=== PATIENT | male | born 1995 | race Caucasian/White ===

== ENCOUNTER 2024-05-07 07:42 | Outpatient (CLI) | payer SELFPAY ==
[2024-05-07 11:29] LABS: HIV 1/2 Ab P24 Ag Result Negative (Negative); Hepatitis C Virus Antibody Negative (Negative)
[2024-05-07 11:50] LABS: Hepatitis B Surface Antigen Negative (Negative)
== END 2024-05-07 07:43 | disposition home or self-care (01) ==
LOC: ANHLAB 07:48
PROVIDERS: PCP Nurse Practitioner Family; Visit Provider Nurse Practitioner Family
DX: T14.8XXA Other injury of unspecified body region, initial encounter (principal); W46.0XXA Contact with hypodermic needle, initial encounter
CPT/HCPCS: 36415; 86703; 86803; 87340; G0432

== ENCOUNTER 2025-02-26 09:10 | Emergency (ER) | payer OTHER, SELFPAY ==
[2025-02-26 09:19] VITALS: BP 136/84; PULSE 103; RESP 18; TEMP 37.1; O2SAT 97
--- NOTE | 2025-02-26 10:01 | ED_ITS ---
HPI - URI/Sore Throat General Chief Complaint: Upper Respiratory Infection Stated Complaint: fever/chills Source: patient and family ( and daughter) Mode of arrival: ambulatory Limitations: no limitations History of Present Illness HPI Narrative: 29-year-old male presents to [facility] with complaints of cold sweats, decreased appetite and congestion since yesterday. Patient reports that he had body aches and chills yesterday but they have since resolved. Patient tried taking ibuprofen with follow-up with. Patient denies sick contacts For recent travel. Patient denies nausea, vomiting, diarrhea, shortness of breath, wheezing, ear pain or sore throat. MD elicited complaint: nasal congestion and other ( sweats, decreased appetite) Onset (ago): day(s) (1) Exacerbating factors: nothing Relieving factors: nothing Treatments prior to arrival: none and ibuprofen Related Data Allergies Allergy/AdvReac Type Severity Reaction Status Date / Time No Known Allergies Allergy Verified 02/26/25 09:45 Review of Systems Constitutional: Constitutional: Reports chills, Reports fatigue, Denies fever(s) and Denies weakness ENT: Denies dysphagia, Denies vertigo, Denies dizziness, Denies epistaxis, Reports nasal congestion and Denies sore throat Respiratory: Respiratory: Denies cough, Denies dyspnea and Denies wheezing Gastrointestinal: Gastrointestinal: Denies diarrhea, Denies nausea and Denies vomiting Musculoskeletal: Musculoskeletal: Denies arthralgias and Denies joint swelling Integumentary/Breasts: Skin/Breast: Denies rash Neurologic: Denies dizziness, Denies syncope and Denies headache(s) [facility] Past Medical History Medical History Encounter for screening for malignant neoplasm of prostate Annual physical exam GERD (gastroesophageal reflux disease) History of pilonidal cyst Surgical History Surgical History H/O wisdom tooth extraction S/P tonsillectomy and adenoidectomy Family History Family History Father Hypertension Grandparent Kidney carcinoma Hypertension Social History Social History Social History: 05/06/24 patient declined SDKY Smoking status: Never smoker Alcohol intake: current Substance use: never Lack of Transportation: No Lack of Food: Never True Current Housing: I Have Housing Concerned About Future Housing: No Difficulty Paying Gas/Electric Bills: No Difficulty Paying for Meds: No Currently Unemployed: No Education: Bachelor's Degree Difficulty w/ Childcare or Family Care: No Living arrangements: with family Occupation/Education: occupation 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 There is no relevant family history pertinent to the presenting complaint. Exam Const: General: healthy appearing and no acute distress Nutritional Appearance: well nourished Orientation/consciousness: patient oriented x3 Limitations: no limitations HENMT: Head: normal to inspection Ears: external ears normal and TM's normal bilaterally Face and sinus: normal facial exam Teeth and gingiva: dentition normal Throat: posterior oropharynx normal and uvula midline Eyes: Conjunctivae: conjunctivae normal Neck: Neck: normal visual inspection Resp: Effort & Inspection: normal respiratory effort and not labored Auscultation: clear to auscultation bilaterally, no crackles, no rales, no rhonchi, no wheezes and breath sounds present Cardio: Rate: regular rate Rhythm: regular rhythm GI: Inspection: non-distended GI Palp: Yes Soft to palpation, No Tenderness to palpation present (GI), No Guarding due to palpation present (GI) and No Rigid due to palpation Skin: General skin exam: normal color Rashes: no rashes Neuro: General: patient oriented x3 Speech: normal speech Gait exam (Neuro): Normal gait present Psych: Affect: normal affect Attitude: cooperative Course Course Level of Care: Express Care Visit Vital Signs Vital signs: Vital Signs Temperature 37.1 C 02/26/25 09:19 Pulse Rate 103 H 02/26/25 09:19 Respiratory Rate 18 02/26/25 09:19 Blood Pressure 136/84 02/26/25 09:19 Pulse Oximetry 97 02/26/25 09:19 Oxygen Delivery Room Air 02/26/25 09:19 Temperature 37.1 C 02/26/25 09:19 Pulse Rate 103 H 02/26/25 09:19 Respiratory Rate 18 02/26/25 09:19 Blood Pressure 136/84 02/26/25 09:19 Pulse Oximetry 97 02/26/25 09:19 Oxygen Delivery Room Air 02/26/25 09:19 MDM - URI/Sore Throat MDM Narrative Medical decision making narrative: discussed negative lab results with patient.educated patient that symptoms are likely viral at this time. Encouraged patient to alternate Motrin and Tylenol as needed. Encouraged patient to follow-up with primary care provider if symptoms do not improve and to proceed to the emergency room if symptoms worsen Differential Diagnosis Differential diagnosis: Likely upper respiratory infection, otitis media and sinusitis Lab Data Labs: Negative rapid influenza and COVID Critical Care Time Critical Care Time Critical Care Time: No Discharge Plan Discharge Clinical Impression: Viral infection Patient Disposition: Home Condition: Stable Instructions: Viral Syndrome (ED) Additional Instructions: rest increase fluids Alternate Motrin and Tylenol as needed Follow-up with primary care provider if symptoms not improved Proceed to the emergency room if symptoms worsen Patient Language: Cymraes Prescriptions: No Action atorvastatin 20 mg tablet 20 mg PO QHS Qty: 90 1RF omeprazole 40 mg capsule,delayed release(DR/EC) 40 mg PO DAILY Qty: 90 1RF Follow-up/Referrals: UNKNOWN,DOCTOR [Primary Care Provider] Time of Disposition: 10:08
[2025-02-26 10:14] LABS: EDCOVIDSCREEN Negative (Negative); EDINFLUASCREEN Negative (Negative); EDINFLUBSCREEN Negative (Negative)
== END 2025-02-26 10:14 | disposition home or self-care (01) ==
PROVIDERS: Emergency Provider Nurse Practitioner Family
DX: B34.9 Viral infection, unspecified (principal); K21.9 Gastro-esophageal reflux disease without esophagitis; Z20.822 Contact with and (suspected) exposure to COVID-19
CPT/HCPCS: 87426; 87804; 99212; G0463